=== PATIENT | male | born 1965 | race Caucasian/White ===

== ENCOUNTER 2017-07-09 07:48 | Emergency (ER) | payer BC ==
[~2017-07-09] VITALS: Ht 187.9 cm; Wt 104.3 kg
[2017-07-09] MEDS ORDERED: SEPTDS PO (10:04)
== END 2017-07-09 10:14 | disposition home or self-care (01) ==
LOC: ED 07:48
DX: L03.114 Cellulitis of left upper limb (principal); M13.842 Other specified arthritis, left hand

== ENCOUNTER 2018-01-05 07:28 | Emergency (ER) | payer BC ==
[~2018-01-05] VITALS: Ht 187.9 cm; Wt 104.3 kg
[~2018-01-05 07:28] MED LIST: SEPTDS PO
[2018-01-05] MEDS ORDERED: DICLOFENAC SOD75 MG PO (07:40)
[2018-01-05] MEDS ORDERED: DOXYCYCLINE100 M3 PO (07:41)
[2018-01-05] MEDS ORDERED: NAPROSYN500 MG PO (08:04)
[2018-01-05] MEDS ORDERED: TYLENOL325 M1 PO (08:04)
== END 2018-01-05 08:15 | disposition home or self-care (01) ==
LOC: ED 07:28
DX: S60.032A Contusion of left middle finger without damage to nail, initial encounter (principal); W23.0XXA Caught, crushed, jammed, or pinched between moving objects, initial encounter; Y93.89 Activity, other specified; Y92.89 Other specified places as the place of occurrence of the external cause; Y99.8 Other external cause status